=== PATIENT | female | born 1945 | race Caucasian/White ===

== ENCOUNTER 2019-03-20 12:04 | Outpatient (CLI) | payer MEDICARE, SELFPAY ==
--- NOTE | ~2019-03-20 | XR_ITS ---
EXAMINATION:XR cervical spine 4-5V DATE: 03/20/2019 12:34 INDICATION: Strain of the muscle, fascia, and tendon at the neck TECHNIQUE: AP, lateral, lateral swimmers and odontoid views of the cervical spine are provided. COMPARISON: 03/25/2008 FINDINGS: There are 2 mm of anterolisthesis of C5 on C6 3 mm of retrolisthesis C6 on C7. The odontoid is intact. No fracture is identified. There is mild loss of intervertebral disc space height at C6-7 . The vertebral body heights are normal. There is moderate facet and uncovertebral joint osteoarthrit is of the lower cervical spine. Prevertebral soft tissues are normal. A chronic heterotopic ossificat ion projects between the C5 and C6 spinous processes. Surgical clips are noted over the left upper ch est. IMPRESSION: 1. Mild to moderate cervical spondylosis without acute findings. Reviewed, dictated and finalized at location A. GROUT SEWER LINE REPAIRER
== END 2019-03-20 12:05 | disposition home or self-care (01) ==
LOC: ANHIMG 12:07
PROVIDERS: PCP Family Medicine; Visit Provider Family Medicine
DX: S16.1XXA Strain of muscle, fascia and tendon at neck level, initial encounter (principal); X58.XXXA Exposure to other specified factors, initial encounter; M47.892 Other spondylosis, cervical region
CPT/HCPCS: 72050

== ENCOUNTER → 2020-12-16 10:39 | Outpatient (CLI) | payer MEDICARE, SELFPAY ==
--- NOTE | ~2020-12-16 | XR_ITS ---
EXAMINATION: XR shoulder LT min 2V DATE: 12/16/2020 11:39 INDICATION: Pain in unspecified shoulder. TECHNIQUE: 4 views of left shoulder were obtained. COMPARISON: Left shoulder radiograph 07/18/2014 FINDINGS: Bone alignment is normal. No fracture. There is mild osteoarthritis of glenohumeral joint a nd acromioclavicular joint. Surgical clips overlie left chest. IMPRESSION: 1. Mild polyarticular osteoarthritis. Reviewed, dictated and finalized at location A. HICS PROGRAMMER
--- NOTE | ~2020-12-16 | XR_ITS ---
EXAMINATION: XR shoulder RT min 2V DATE: 12/16/2020 11:39 INDICATION: Pain in unspecified shoulder. TECHNIQUE: 4 views of right shoulder were obtained. COMPARISON: None. FINDINGS: Bone alignment is normal. No fracture. There is mild osteoarthritis of glenohumeral joint a nd acromioclavicular joint. IMPRESSION: 1. Mild polyarticular osteoarthritis. Reviewed, dictated and finalized at location A. AM TRIMMING MACHINE OPERATOR
== END ==
PROVIDERS: PCP Family Medicine; Visit Provider Family Medicine
DX: M19.011 Primary osteoarthritis, right shoulder (principal); M19.012 Primary osteoarthritis, left shoulder
CPT/HCPCS: 73030

== ENCOUNTER → 2021-12-30 11:33 | Outpatient (CLI) | payer MEDICARE, SELFPAY ==
--- NOTE | ~2021-12-30 | DEXA_ITS ---
Bone Density Report Name: JOSE BAÑUELOS Age: 76 Sex: Female Ethnicity: White Date of : 1945 Indication: osteopenia; prior fracture; hysterectomy;postmenopausal Referring Provider: JOCELYN CHUA Study: Bone densitometry was performed. Exam Date: December 30, 2021 Accession number: [id number] Bone Density: Region BMD T-score Z-score Classification AP Spine (L1-L4) 0.944 -0.9 1.4 Normal World Health Organization criteria for BMD impression classify patients as: Normal (T-score at or above -1.0), Osteopenia (T-score between -1.0 and -2.5), or Osteoporosis (T-score at or below -2.5). Previous Exams: Region Exam Age BMD T-score BMD Change BMD Change Date g/cm2 vs Baseline vs Previous AP Spine(L1-L4) 12/30/2021 76 0.944 -0.9 0.040* 0.040* 06/23/2015 70 0.903 -1.3 *Denotes significance at 95% confidence level, LSC for AP Spine = 0.022 g/cm2 Clinical Information Provided by Patient: Have had a previous hip or vertebral fracture Has had a low trauma fracture Has used the following medications: Vitamin D, Calcium, LEVOTHYROXINE Has the following medical conditions: Hysterectomy, HX OF LEFT BREAST CA LUMPECTOMY WITH RADIATION AND CHEMO IN 2005 WITH ARIMIDEX; HX OF TONGUE CA IN 2008 Patient maximum height was 64.0 Menopause Age: 53 Drinks caffeinated beverages Onset of menses at age 12 Number of children 4 Impression: The patient has normal bone mass. The patient has risk factors, including: previous fracture. No significant bone loss was observed. Discussion: INCREASED RISK OF FRACTURE DUE TO HISTORY OF FRACTURE. The patient's previous fracture puts the patient at high risk of a future fracture. In untreated patients, the risk of osteoporotic fracture increases approximately two-fold for each 1.0 SD decrease in T-score. Low bone density is not the only risk factor for fracture; also consider factors such as patient's age, frailty or poor health, risk of falling, risk of injury, previous osteoporotic fracture, family history of osteoporosis, cigarette smoking, low body weight, etc. Not everyone with a low trauma fracture has osteoporosis; osteomalacia and other metabolic bone disorders should also be considered. Patients who have osteoporosis should be evaluated for specific diseases and conditions (secondary causes) that may cause or contribute to bone loss and fracture risk. National Osteoporosis Foundation (NOF) recommends pharmacologic intervention for patients with a prior hip or vertebral fracture regardless of BMD T-score. The patient should follow a healthful lifestyle (good nutrition with adequate calcium and vitamin D, and appropriate weight-bearing exercise). Follow-Up: Consider a repeat BMD and Vertebral
== END ==
PROVIDERS: PCP Family Medicine; Visit Provider Obstetrics & Gynecology
DX: Z13.820 Encounter for screening for osteoporosis (principal); Z78.0 Asymptomatic menopausal state
CPT/HCPCS: 77080

== ENCOUNTER → 2022-01-21 10:04 | Outpatient (CLI) | payer MEDICARE, SELFPAY ==
--- NOTE | ~2022-01-21 | XR_ITS ---
EXAMINATION: XR chest 2V DATE: 01/21/2022 10:30 INDICATION: Cough and congestion TECHNIQUE: PA and lateral views of the chest are obtained. COMPARISON: 11/16/2012 FINDINGS: There are minimal airspace opacities of the left lung base. No pleural effusion or pneumoth orax. The cardiomediastinal silhouette is normal. There is mild thoracic spondylosis. Surgical clips project at the level of the left hilum. IMPRESSION: 1. Minimal left basilar airspace opacity, consistent with atelectasis versus pneumonia. Reviewed, dictated and finalized at location A. OR BUSINESS DEVELOPMENT ANALYST IMPRESSION: 1. Minimal left basilar airspace opacity, consistent with atelectasis versus pn eumonia.
== END ==
PROVIDERS: PCP Family Medicine; Visit Provider Family Medicine
DX: R05.9 Cough, unspecified (principal); R09.81 Nasal congestion; R53.83 Other fatigue; R91.8 Other nonspecific abnormal finding of lung field
CPT/HCPCS: 71046

== ENCOUNTER → 2022-02-25 10:51 | Outpatient (CLI) | payer MEDICARE, SELFPAY ==
--- NOTE | ~2022-02-25 | XR_ITS ---
XR chest 2V DATE: 02/25/2022 11:08 INDICATION: Pneumonia one month ago TECHNIQUE: 2 views COMPARISON: 01/21/2022 2 view chest FINDINGS: There is resolution of left lower lobe infiltrate or atelectasis since 01/21/2022. Lungs ap pear clear. No pleural effusion or pulmonary vascular congestion or pneumothorax. Normal heart size. Aortic unfolding. Surgical clips are noted overlying the anterior mid left chest. IMPRESSION: No active cardiopulmonary disease Reviewed, dictated and finalized at location L. L SPRAY OPERATOR
== END ==
PROVIDERS: PCP Family Medicine; Visit Provider Family Medicine
DX: J18.9 Pneumonia, unspecified organism (principal)
CPT/HCPCS: 71046

== ENCOUNTER 2022-04-30 12:17 | Emergency (ER) | payer MEDICARE, SELFPAY ==
--- NOTE | ~2022-04-30 | XR_ITS ---
Clinical Indication: Shortness of breath PA and lateral views of the chest: Comparison: 02/25/2022 Findings: The lungs are clear, without evidence of focal consolidation or pleural effusion. Cardiome diastinal silhouette is within normal limits. Bones and soft tissues are unremarkable. Impression: Normal chest. Reviewed, dictated and finalized at location . Impression: Normal chest.
[2022-04-30 12:26] VITALS: BP 115/60; PULSE 70; RESP 16; TEMP 36.5; O2SAT 99
--- NOTE | 2022-04-30 12:41 | ED.URI ---
HPI - URI/Sore Throat General Chief Complaint: Upper Respiratory Infection Stated Complaint: cough Time Seen by Provider: 04/30/22 12:42 Source: patient and RN notes reviewed Mode of arrival: ambulatory Limitations: no limitations History of Present Illness HPI Narrative: 76 y/o female presented for c/o cough and nasal congestion and drainage the past 3 days. Reports right lower rib pain with coughing. Denies lethargy, sob, wheezing, n/v/d/f/c. Not taking anything for symptoms. Denies sick contacts. PCP advised CXR and evaluation. MD elicited complaint: cough Related Data Home Medications Medication Instructions Recorded Confirmed cholecalciferol (vitamin D3) 25 25 mcg PO DAILY 10/01/20 04/30/22 mcg (1,000 unit) capsule mecobalamin (vitamin B12) 1,000 1,000 mcg PO DAILY 04/23/21 04/30/22 mcg chewable tablet (B12 Active) latanoprost 0.005 % eye drops 1 drp EACH EYE DAILY 02/25/22 04/30/22 mirabegron 25 mg tablet,extended 25 mg PO DAILY 02/25/22 04/30/22 release 24 hr (Myrbetriq) timolol maleate 0.5 % once daily 1 drp EACH EYE DAILY 02/25/22 04/30/22 eye drops Allergies Allergy/AdvReac Type Severity Reaction Status Date / Time codeine Allergy Unknown Unknown Verified 02/25/22 09:53 latex Allergy Unknown Unknown Verified 02/25/22 09:53 morphine Allergy Unknown NAUSEA Verified 02/25/22 09:53 Review of Systems Review of Systems: CONSTITUTIONAL: Denies malaise, chills, sweats, fever EYES: Denies visual changes, redness, or discharge ENT: Reports rhinorrhea, denies sinus pain, otalgia, sore throat CARDIOVASCULAR: Denies chest pain, palpitations, edema RESPIRATORY: Reports cough, post nasal drainage. Denies dyspnea GASTROINTESTINAL: Denies abdominal pain, nausea, vomiting, diarrhea SKIN: Denies rash or itching MUSCULOSKELETAL: Denies myalgia NEUROLOGIC: Denies headache [facility] Past Medical History Medical History (Updated 04/30/22 @ 13:26 by Ciarra Liz, PATIENT OBSERVATION ASSISTANT) Closed nondisplaced fracture of lateral malleolus of right fibula History of measles History of mumps HX: breast cancer Hypothyroid Malignant neoplasm of tongue, unspecified Neck strain Palmar fascial fibromatosis [dupuytren] Pneumonia Proctitis Sciatica Syncope and collapse Surgical History Surgical History History of hysterectomy History of open reduction and internal fixation (ORIF) procedure bilateral/ 2.15.22 Family History Family History Father Diabetes mellitus Family history of cardiovascular disease Mother Family history of cardiovascular disease Family history of malignant neoplasm of cervix Other Family history of arthritis Family history of heart disease in male family member before age 55 Family history of malignant neoplasm Family history of malignant neoplasm of breast Social History Social History Smoking status: Never smoker Alcohol intake: never Substance use type: does not use Lack of Transportation: No Lack of Food: Never True Current Housing: I Have Housing Concerned About Future Housing: No Difficulty Paying Gas/Electric Bills: No Difficulty Paying for Meds: No Currently Unemployed: No Education: Grade School Difficulty w/ Childcare or Family Care: No Exam Narrative: GENERAL: mildly Ill-appearing, nontoxic EYES: PERRLA, conjunctivae clear ENT: Mucous membranes moist. Nasal congestion. TM pearly mg with dull light reflex bilaterally; no tragal tenderness. Oropharynx normal without lesions or exudate NECK: Supple. No lymphadenopathy CHEST: Clear to auscultation, breath sounds equal. No wheezing, rhonchi, rales, or stridor. No respiratory distress, speaks in full sentences. HEART: Regular rate and rhythm. No murmur heard. SKIN: Warm, dry, no rash. NEURO: Alert and oriented x3. PSYCH: Normal mood
== END 2022-04-30 13:30 | disposition home or self-care (01) ==
PROVIDERS: Emergency Provider Nurse Practitioner Family; PCP Family Medicine
DX: J06.9 Acute upper respiratory infection, unspecified (principal); E03.9 Hypothyroidism, unspecified; Z85.3 Personal history of malignant neoplasm of breast; Z20.822 Contact with and (suspected) exposure to COVID-19
CPT/HCPCS: 71046; 87426; 99213; C9803; G0463

== ENCOUNTER 2024-03-01 09:47 | Outpatient (CLI) | payer MEDICARE, SELFPAY ==
[2024-03-02 10:15] LABS: Kit Draw Collected
== END 2024-03-01 09:48 | disposition home or self-care (01) ==
LOC: ANHGOSHLAB 09:48
PROVIDERS: PCP Family Medicine; Visit Provider Family Medicine
DX: E03.9 Hypothyroidism, unspecified (principal); M85.80 Other specified disorders of bone density and structure, unspecified site; R06.02 Shortness of breath
CPT/HCPCS: 36415

== ENCOUNTER 2024-03-01 10:02 | Outpatient (CLI) | payer MEDICARE, SELFPAY ==
--- NOTE | ~2024-03-01 | XR_ITS ---
Clinical Indication: Shortness of breath PA and lateral views of the chest: Comparison: 04/30/2022 Findings: The lungs are clear, without evidence of focal consolidation or pleural effusion. Cardiome diastinal silhouette is within normal limits. Bones and soft tissues are unremarkable. Impression: Normal chest. Reviewed, dictated and finalized at [facility]. ATIONS STAFF SPECIALIST SECURITY Impression: Normal chest.
== END 2024-03-01 10:03 | disposition home or self-care (01) ==
LOC: GOSHIMG 10:03
PROVIDERS: PCP Family Medicine; Visit Provider Family Medicine
DX: R06.02 Shortness of breath (principal); G62.0 Drug-induced polyneuropathy; T45.1X5A Adverse effect of antineoplastic and immunosuppressive drugs, initial encounter; Z85.3 Personal history of malignant neoplasm of breast
CPT/HCPCS: 71046

== ENCOUNTER 2024-03-06 14:41 | Outpatient (CLI) | payer MEDICARE, SELFPAY ==
--- NOTE | ~2024-03-06 | US_ITS ---
EXAMINATION: US venous doppler [facility] DATE: 03/06/2024 15:10 INDICATION: Left lower limb pain TECHNIQUE: Grayscale ultrasound images without and with compression and Doppler ultrasound images of the left lower extremity veins were obtained. COMPARISON: None. FINDINGS: There is noncompressible deep venous anastomosis profunda femoral, superficial femoral, popliteal and gastrocnemius veins. The visualized portions of left common femoral vein, peroneal veins, posterior tibial veins, gastrocnemius vein and greater saphenous vein outflow are patent. IMPRESSION: 1. Venous thrombosis in the left superficial femoral, profunda femoral, popliteal and gastrocnemius veins. Reviewed, dictated and finalized at location A. RAL OFFICE DISPATCHER IMPRESSION: 1. Venous thrombosis in the left superficial femoral, profunda femoral, poplit eal and gastrocnemius veins.
--- OUTSIDE RECORDS SUMMARY | 2024-03-06 15:17 | XMS_ITS ---
Author Organization [facility] Address [address] [place] [address] Care Team Providers Care Control Clerk Head Name Role Phone Darleen Alan MD Primary Care Provider + Aft, Marion Swift MD PhD Unavailable [phone] Bisi Lopez CLERK SECRETARY Unavailable [phone] Active Problems Problem Noted Date Diagnosed Date Breast cancer, female 09/10/2021 Acute blood loss anemia 03/24/2021 Closed displaced transverse fracture of shaft of left femur 03/21/2021 Overview (03/21/2021): Added automatically from request for surgery [id number] Closed displaced transverse fracture of shaft of left femur, initial encounter 03/21/2021 Incomplete atypical fracture of right femur 03/10 Overview (03/23/2021): Added automatically from request for surgery [id number] Malignant neoplasm of overla pping 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, estrogen receptor positive 10/05/2017 History of malignant neoplasm of breast 11/09/19 15 Malignant neoplasm of tongue 06/20/2009 Current Oncology Plans No current plan information found. Past Plans No past plan information found. Radiation Treatments * No radiation treatments are documented for this patient in [facility]. Treatments may have been administered in another system. Lifetime Dose Tracking * Chemical Lifetime Dose Automatic Entry Manual Entr y Fluoro Time 8.827 minutes 8.827 minutes 0 minutes Air kerma at the reference point (Ka,r) 121.37 mGy 1 21.37 mGy 0 mGy
--- OUTSIDE RECORDS SUMMARY | 2024-03-06 15:17 | XMS_ITS | Continuity of Care Document ---
Author Organization [facility] Address [address] [place] [address] Phone Care Team Providers Care Launderette Attendant Name Role Phone Fermín RAMIREZ MD, Gilberto Unavailable Unavailable Procedures Procedure Date OFFICE/OUTPATIENT VISIT, [facility] OPHTHALMIC BIOMETRY SPECIAL EYE EXAM, INITIAL SPECIAL EYE EXAM, INITIAL Advance Directives Directive Yes / No Effective Date File Name No Information Encounters Encounter Description Practice Location Reason(s) For Visit Diagnoses Date Provider Providers Copied on Encounter OFFICE/OUTPA TIENT VISIT, [facility], [address] [address], [place], [place], [id number], [place] tel:[phone] [facility] No Information 4 Fermín Macias. [address], [address], [place], [place], [id number] , [place]. tel:[phone] Referring Provider: Gilberto Kovacs MD P, [address], [place], [place], [id number]. tel:[phone] Family History Family Member Type Diagnosis Age At Onset No Information Payers Payer name Insurance type Covered democrat ID Authoriza tion(s) No Information Social History Type Description Quantity Date Captured Comments Sex Female Smoking Status No Information Chief Complaint And Reason For Visit No Information Plan Of Treatment Date Type Action Status No Information History Of Present Illness Encounter Date Complaint History Of Prese nt Illness No Information Instructions Date Instruction Additional Infor mation No Information Assessments Type Assessment Date No Information
--- OUTSIDE RECORDS SUMMARY | 2024-03-06 15:17 | XMS_ITS | Referral Summary ---
Author Organization [facility] Address [address] [place] [address] Care Team Providers Care Sharepoint Application Developer Name Role Phone Darleen Alan MD Primary Care Provider + Aft, Marion Swift MD PhD Unavailable [phone] JessicaBisi SALVAGE WORKER Unavailable [phone] Allergies Active Allergy Reactions Criticality Noted Date Comments Adhesive Rash Medium Codeine Unknown,Other (See comments) Low 05/22/2010 Reaction: Codeine Phosphate Unknown 09/01/2012 Propoxyphene N-Acetaminophen Other (See comments) Low Reaction: Opioids - Morphine Analogues Unknown 09/01/2012 Medications ENABLEX 15 mg 24 hr tablet 8 Active famotidine (PEPCID) 40 mg tablet 8 Active efinaconazole 10 % solution with applicator Active multivitamin tabletIndication s:Vitamin Deficiency Prevention Active vitamins A,C,N-waip-jnsjo r (OCUVITE) 7,160 unit- 113 mg-100 unit tablet Active cholecalciferol (VITAMIN D-3) 2,000 unit tablet Active hydrocortisone (ANUSOL-HC) 25 mg suppository 8 Active latanoprost (XALATAN) 0.005 % ophthalmic solution 9 Active oxybutynin XL (DITROPAN-XL) 10 mg 24 hr tablet Take 1 tablet (10 mg total) by mouth daily 0 Active levothyroxine (SYNTHROID) 88 mcg tablet Take 100 mcg by mouth every morning 0 Active cyanocobalamin, vitamin B-12, (VITAMIN B-12 ORAL) Take by mouth Active acetaminophen 500 mg capsuleIndicatio ns:Pain Take 2 capsules (1,000 mg total) by mouth every 6 (six) hours 30 tablet 2 Active aspirin 81 mg enteric coated tabletIndication s:prevention of thrombosis Take 1 tablet (81 mg total) by mouth 2 (two) times a day for 14 days 28 tablet 2 Active oxyCODONE (ROXICODONE) 5 mg immediate release tabletIndication s:Pain Take 1 tablet (5 mg total) by mouth every 4 (four) hours as needed for pain 20 tablet 2 Active polyethylene glycol (MIRALAX) 17 gram packetIndication s:constipation Take 1 packet (17 g total) by mouth 2 (two) times a day 30 packet 2 Active Additional Information Patient not taking.Reported on 01/13/2023 senna-docusate (PERICOLACE) 8.6-50 mg Take 2 tablets by mouth 2 (two) times a day 30 tablet 2 Active Additional Information Patient not taking.Reported on 01/13/2023 gabapentin (NEURONTIN) 300 mg capsule TAKE 2 CAPSULE BY MOUTH EVERY DAY AT BEDTIME 3 Active timoloL (ISTALOL) 0.5 % drops, once daily ophthalmic solution 3 Active prednisoLONE acetate (PRED FORTE) 1 % ophthalmic suspension INSTILL 1 DROP INTO LEFT EYE THREE TIMES DAILY UNTIL NEXT FOLLOW UP 3 Active Myrbetriq 50 mg tablet extended release 24 hr Take 1 tablet (50 mg total) by mouth daily 3 Active Active Problems Problem Noted Date Diagnosed Date Breast cancer, female 09/10/2021 Acute blood loss anemia 03/24/2021 Closed displaced transverse fracture of shaft of left femur 03/21/2021 Overview (03/21/2021): Added automatically from request for surgery [id number] Closed displaced transverse fracture of shaft of left femur, initial encounter 03/21/2021 Incomplete atypical fracture of right femur 03/10 Overview (03/23/2021): Added automatically from request for surgery [id number] Malignant neoplasm of overla pping 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, estrogen receptor positive 10/05/2017 History of malignant neoplasm of breast 11/09/19 15 Malignant neoplasm of tongue 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 Monthly or less 03/22/2021 Q2: How many drinks containi ng alcohol do you have on a typical day when you are drinking? 1 or 2 03/22/2021 Q3: How often do you have si x or more drinks on one occasion? Never 03/22/2021 Comments No Sex and Gender Information Value Date Recorded Sex Assigned at Not on file Legal Sex Female 3:26 AM STAND GRINDER Gender Identity Female 04/18/2021 6:39 PM STAND GRINDER Sexual Orientation Straight 04/18/2021 6: 39 PM STAND GRINDER Last Filed Vital Signs Vital Sign Reading Time Taken Comments Blood Pressure 121/67 01/13/2023 3:47 PM STAND GRINDER Pulse 78 01/13/2023 3:47 PM STAND GRINDER Temperature 36.3 ??C (97.4 ??F) 01/13/2023 3:47 PM CS T Respiratory Rate 18 01/13/2023 3:47 PM STAND GRINDER Oxygen Saturation 97% 01/13/2023 3:47 PM STAND GRINDER Inhaled Oxygen Concentration - - Weight 82.4 kg (181 lb 9.6 oz) 01/13/2023 3:47 P M STAND GRINDER Height 162.6 cm (5' 4 ) 01/13/2023 3:47 PM STAND GRINDER Body Mass Index 31.17 01/13/2023 3:47 PM STAND GRINDER Plan of Treatment Not on file Medical Devices Implanted Type Area Invasive Cardiologist Device Identifier Shelf Expiration Date Model / Serial / Lot [employer] 2333-1038s Nail 10mm 380mm Fem Greater Trochanter Right T2 Alpha Im - [id number] Implanted:Qty: 1 on 03/24/2021 by Franny Cardozo MD at [facility] Nail Right: Femur [employer] [id number] 10/07/2022 5278-9134 S / / [id number] Synthes 04.003.028 6.5mm 90mm Self Tap Blunt Tip Stardrive Femoral Lateral T25 Screw - S0 - [id number] Implanted:Qty: 1 on 03/22/2021 by Rusty Larios MD at [facility] Screw Left: Femur Synthes I 04.003.02 8 / 0 / 0 Synthes 04.005.528 5mm 4.3mm 38mm Lock Self Tap Blunt Tip 2 Lead Tibial T25 Full - S0 - [id number] Implanted:Qty: 1 on 03/22/2021 by Rusty Larios MD at [facility] Screw Left: Femur Synthes I 04.005.52 8 / 0 / 0 Synthes 04.005.534 5mm 4.3mm 44mm Lock Self Tap Blunt Tip 2 Lead Tibial T25 Full - S0 - [id number] Implanted:Qty: 1 on 03/22/2021 by Rusty Larios MD at [facility] Screw Left: Femur Synthes I 04.005.53 4 / 0 / 0 Synthes 04.005.532 5mm 4.3mm 42mm Lock Self Tap Blunt Tip 2 Lead Tibial T25 Full - S0 - [id number] Implanted:Qty: 1 on 03/22/2021 by Rusty Larios MD at [facility] Screw Left: Femur Synthes I 04.005.53 2 / 0 / 0 Synthes 04.005.536 5mm 4.3mm 46mm Lock Self Tap Blunt Tip 2 Lead Tibial T25 Full - S0 - [id number] Implanted:Qty: 1 on 03/22/2021 by Rusty Larios MD at [facility] Screw Left: Femur Synthes I 04.005.53 6 / 0 / 0 [employer] 1897-6080s 6.5mm 80mm Lag Cannulated Femur Screw Bone Titanium Sterile - [id number] Implanted:Qty: 1 on 03/24/2021 by Franny Cardozo MD at [facility] Screw Right: Femur [employer] [id number] 10/07/2025 5991-0249 S / / [id number] [employer] 1897-6080s 6.5mm 80mm Lag Cannulated Femur Screw Bone Titanium Sterile - [id number] Implanted:Qty: 1 on 03/24/2021 by Franny Cardozo MD at [facility] Screw Right: Femur [employer] [id number] 08/06/2022 2063-1624 S / / [id number] [employer] 2360-5055s Screw Bone 5mm 55mm T2 Alpha Lock Strl - [id number] Implanted:Qty: 1 on 03/24/2021 by Luis Medina MD at [facility] Screw Right: Femur [employer] [id number] 03/09/2030 1681-5282 S / / [id number] [employer] 2360-5045s Screw Bone 5mm 45mm T2 Alpha Lock Strl - [id number] Implanted:Qty: 1 on 03/24/2021 by Luis Medina MD at [facility] Screw Right: Femur [employer] [id number] 04/06/2030 1700-7811 S / / [id number] Synthes 04.033.067s Nail 10mm 360mm Fem Greater Trochanter Left Im 140d 8 Hole - [id number] Implanted:Qty: 1 on 03/22/2021 by Mauro Barraza MD at [facility] Left: Femur [employer]ynthe[employer] I 08/07/2027 04.033.06 7S / / [id number] Explanted Type Area Invasive Cardiologist Device Identifier Shelf Expiration Date Model / Serial / Lot [employer] 1806-0050s Dom T2 3mm 285mm Retrograde Supracondylar Wire Fixation - [id number] Explanted:Qty: 1 on 03/24/2021 by Franny Cardozo MD at [facility] Wire Right: Femur [employer] [id number] 12/07/2025 2653-2955 S / / [id number] [employer] 2351-3240s K-Wire Drill-Tip Recon - [id number] Explanted:Qty: 1 on 03/24/2021 by Franny Cardozo MD at [facility] Wire Right: Femur [employer] [id number] 01/06/2031 8705-1757 S / / [id number] Procedures Procedure Name Priority Date/Time Associated Diagnosis Comments SCREENING MAMMOGRAM BILATERAL W BLANCA Schedule Routine, Read Routine (OP Routine) 11/21/2023 1:59 PM CDT Encounter for screening mammogram for breast cancer from Last 3 Months or Most Recently Relevant to Health Maintenance Results * Screening Mammogram Bilateral W Blanca (11/21/2023 1:59 PM CDT) Anatomical Region Laterality Modality Breast Bilateral Mammography Impressions 11/21/2023 2:26 PM CDT BI-RADS?? ATLAS category (overall): 2 - Benign There is no mammographic evidence of malignancy. A 1 year screening mammogram is recommended. The patient has been or will be contacted. We recommend annual screening mammography for women at average risk of breast cancer beginning at age 40, based on guidelines of the [employer] (ACR Practice Parameter for the Performance of Screening and Diagnostic Mammography) and [employer]. For women with and elevated risk of breast cancer, please refer to the ACR Practice Parameter for specific screening recommendations. The patient will be entered into a reminder system with a target due date of 1 year for her next screening exam. Narrative 11/21/2023 2:26 PM CDT Screening Mammogram Bilateral W Blanca: 11/21/23 The study was acquired using full field digital technology and interpreted from soft copy. 2D digital mammographic views, as well as 3D digital tomosynthesis were performed in the CC and MLO projections. CLINICAL: ??Encounter for screening mammogram for breast cancer. ??Medical history includes breast cancer. ??History of breast cancer in Father's Sister. COMPARISONS: 10/04/2022 Screening Mammogram Bilateral W Blanca 07/13/2021 Screening Mammogram Bilateral W Blanca 01/23/2020 Screening Mammogram Bilateral W Blanca 12/20/2018 Screening Mammogram Bilateral W Blanca 12/14/2017 Screening Mammogram 2D Bilateral 11/29/2016 MAMMOGRAPHY, TOMOGRAPHY, BILATERAL 11/24/2015 Diagnostic Mammogram Right W Blanca 11/24/2015 DIGITAL MAMMOGRAPHY, UNILATERAL BREAST TISSUE: There are scattered areas of fibroglandular density. FINDINGS: There are stable postlumpectomy changes in the left breast. ?? There are vascular calcifications bilaterally. No suspicious masses, suspicious calcifications, or other suspicious findings are seen within either breast. There has been no suspicious change. Amparo Villanueva NP IMG MAMMO PROCEDURES Final Result from Last 3 Months or Most Recently Relevant to Health Maintenance Insurance AETNA MEDICARE MEDICARE SOLUTIONS [facility] Address: [facility] [address] [place] [address] T MEDICARE AET MEDICARE Advance Directives For more information, please contact: [phone] * Full Code (Latest Code Status on File) Date Activated Date Inactivated Comments 03/22/2021 1:16 AM 03/31/2021 5:08 PM Care Teams Sharepoint Application Developer Relationship Specialty Start Date End Date Darleen Alan MD PCP - General 11/29/16 Aft, Marion Swift MD PhD [address] [place] [address] Surgeon Surgical Oncology 03/31/21 Bisi Lopez NP [address] [place] [id number] Nurse Practitioner Medical Oncology 11/19/22
--- OUTSIDE RECORDS SUMMARY | 2024-03-06 15:17 | XMS_ITS | Clinical Summary ---
Author Organization [facility] Address [address] [place] [address] Care Team Providers Care Screening Technician Name Role Phone Darleen Alan MD Primary Care Provider + Aft, Marion Swift MD PhD Unavailable [phone] JessicaBisi GUEST EXPERIENCE CAPTAIN Unavailable [phone] Allergies Active Allergy Reactions Criticality Noted Date [...] multivitamin tabletIndication s:Vitamin Deficiency Prevention Active vitamins A,C,C-tavm-mqwof r (OCUVITE) 7,160 unit- 113 mg-100 unit [...] (03/21/2021): Added automatically from request for surgery [id number] Closed displaced transverse fracture of shaft of left femur, initial encounter 03/21/2021 Incomplete atypical fracture of right femur 03/10 Overview (03/23/2021): Added automatically from request for surgery [id number] Malignant neoplasm of overla pping 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, estrogen receptor positive 10/05/2017 History of malignant neoplasm of breast 11/09/19 15 Malignant neoplasm of tongue 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 Immunizations Name Administration Dates Next Due Influenza, Quadrivalent, Hig h Dose, Preservative Free, Intrr 11/09/2019 Influenza, Unspecified 12/08/2020,2017,11/22/2016,2015,09/26/2012 ZOSTER LIVE 11/22/2016 Surgical History Surgery Date Site/Laterality Comments COLONOSCOPY BREAST BIOPSY BREAST LUMPECTOMY Medical History Medical History Date Comments Breast cancer (HCC) Family History Medical History Relation Name Comments Breast cancer Father's Sister No Known Problems Mother Relation Name Status Comments Father's Sister Mother Social History Tobacco Use Types Packs/Day Years [...] on file Legal Sex Female 3:26 AM ADVENTURE EDUCATION TEACHER Gender Identity Female 04/18/2021 6:39 PM ADVENTURE EDUCATION TEACHER Sexual Orientation Straight 04/18/2021 6: 39 PM ADVENTURE EDUCATION TEACHER Obstetrics History Last Filed Vital Signs Vital Sign Reading Time Taken Comments Blood Pressure 121/67 01/13/2023 3:47 PM ADVENTURE EDUCATION TEACHER Pulse 78 01/13/2023 3:47 PM ADVENTURE EDUCATION TEACHER Temperature 36.3 ??C (97.4 ??F) 01/13/2023 3:47 PM CS T Respiratory Rate 18 01/13/2023 3:47 PM ADVENTURE EDUCATION TEACHER Oxygen Saturation 97% 01/13/2023 3:47 PM ADVENTURE EDUCATION TEACHER Inhaled Oxygen Concentration - - Weight 82.4 kg (181 lb 9.6 oz) 01/13/2023 3:47 P M ADVENTURE EDUCATION TEACHER Height 162.6 cm (5' 4 ) 01/13/2023 3:47 PM ADVENTURE EDUCATION TEACHER Body Mass Index 31.17 01/13/2023 3:47 PM ADVENTURE EDUCATION TEACHER Plan of Treatment Health Maintenance Due Date Last Done Comments Depression Screening 1945 Hepatitis C Screening 1945 Osteoporosis Screening-Bone Density Scan 1945 DTaP/Tdap/Td Vaccine (1 - Tdap) 05/26/1958 Hepatitis B Screening 05/26/1965 Pneumococcal vaccine 65+ (1 of 1 - PCV) 05/26/2012 Well Visit 65+ 05/26/2012 Zoster Vaccine (2 of 3) 01/17/2017 11/22/2016 Fall Risk Assessment 03/30/2022 03/30/2021 Influenza Vaccine (#1) 2023 , 11/09/2019, 11/07/2017, Additional history exists Breast Cancer Screening-Mammogram Discontinued 11/21/2023, 10/04/2022, 07/13/2021, Additional history exists Medical Devices Implanted Type Area Wedding Coordinator Device Identifier Shelf Expiration Date Model / Serial / Lot [employer] 2333-1038s Nail 10mm 380mm Fem Greater Trochanter Right T2 Alpha Im - [id number] Implanted:Qty: 1 on 03/24/2021 by Franny Cardozo MD at [facility] Nail Right: Femur [employer] [id number] 10/07/2022 3155-3869 S / / [id number] Synthes 04.003.028 6.5mm 90mm Self Tap Blunt Tip Stardrive Femoral Lateral T25 Screw - S0 - [id number] Implanted:Qty: 1 on 03/22/2021 by Rusty Larios MD at [facility] Screw Left: Femur Synthes I 04.003.02 8 / 0 / 0 Synthes 04.005.528 5mm 4.3mm 38mm Lock Self Tap Blunt Tip 2 Lead Tibial T25 Full - S0 - [id number] Implanted:Qty: 1 on 03/22/2021 by Rusty Larios MD at [facility] Screw Left: Femur Synthes I 04.005.52 8 / 0 / 0 Synthes 04.005.534 5mm 4.3mm 44mm Lock Self Tap Blunt Tip 2 Lead Tibial T25 Full - S0 - [id number] Implanted:Qty: 1 on 03/22/2021 by Rusty Larios MD at [facility] Screw Left: Femur Synthes I 04.005.53 4 / 0 / 0 Synthes 04.005.532 5mm 4.3mm 42mm Lock Self Tap Blunt Tip 2 Lead Tibial T25 Full - S0 - [id number] Implanted:Qty: 1 on 03/22/2021 by Rusty Larios MD at [facility] Screw Left: Femur Synthes I 04.005.53 2 / 0 / 0 Synthes 04.005.536 5mm 4.3mm 46mm Lock Self Tap Blunt Tip 2 Lead Tibial T25 Full - S0 - [id number] Implanted:Qty: 1 on 03/22/2021 by Rusty Larios MD at [facility] Screw Left: Femur Synthes I 04.005.53 6 / 0 / 0 [employer] 1897-6080s 6.5mm 80mm Lag Cannulated Femur Screw Bone Titanium Sterile - [id number] Implanted:Qty: 1 on 03/24/2021 by Franny Cardozo MD at [facility] Screw Right: Femur [employer] [id number] 10/07/2025 7640-0242 S / / [id number] [employer] 1897-6080s 6.5mm 80mm Lag Cannulated Femur Screw Bone Titanium Sterile - [id number] Implanted:Qty: 1 on 03/24/2021 by Franny Cardozo MD at [facility] Screw Right: Femur [employer] [id number] 08/06/2022 6712-7458 S / / [id number] [employer] 2360-5125s Screw Bone 5mm 55mm T2 Alpha Lock Strl - [id number] Implanted:Qty: 1 on 03/24/2021 by Luis Medina MD at [facility] Screw Right: Femur [employer] [id number] 03/09/2030 1412-7623 S / / [id number] [employer] 2360-5045s Screw Bone 5mm 45mm T2 Alpha Lock Strl - [id number] Implanted:Qty: 1 on 03/24/2021 by Luis Medina MD at [facility] Screw Right: Femur [employer] [id number] 04/06/2030 3048-2297 S / / [id number] Synthes 04.033.067s Nail 10mm 360mm Fem Greater Trochanter Left Im 140d 8 Hole - [id number] Implanted:Qty: 1 on 03/22/2021 by Mauro Barraza MD at [facility] Left: Femur Synthes I 08/07/2027 04.033.06 7S / / [id number] Explanted Type Area Wedding Coordinator Device Identifier Shelf Expiration Date Model / Serial / Lot [employer] 1806-0050s Dom T2 3mm 285mm Retrograde Supracondylar Wire Fixation - [id number] Explanted:Qty: 1 on 03/24/2021 by Franny Cardozo MD at [facility] Wire Right: Femur [employer] [id number] 12/07/2025 7240-5964 S / / [id number] [employer] 2351-3240s K-Wire Drill-Tip Recon - [id number] Explanted:Qty: 1 on 03/24/2021 by Franny Cardozo MD at [facility] Wire Right: Femur [employer] [id number] 01/06/2031 5048-4183 S / / [id number] Procedures Procedure Name Priority Date/Time Associated Diagnosis [...] age 40, based on guidelines of the [place] [employer] (ACR Practice Parameter for the Performance of Screening and Diagnostic Mammography) and [place] [employer]. For women [...] Health Maintenance Insurance AETNA MEDICARE MEDICARE [facility] Address: [address] [address] [place] [address] AET MEDICARE AETNA MEDICARE Advance Directives For more information, please contact: [phone] * Full Code (Latest Code Status on File) Date Activated Date Inactivated Comments 03/22/2021 1:16 AM 03/31/2021 5:08 PM Care Teams Screening Technician Relationship Specialty Start Date End Date Darleen Alan MD PCP - General 11/29/16 AftMarion MD PhD [address] [place] [address] Surgeon Surgical Oncology 03/31/21 Bisi Lopez, NATASHA [address] [address] Nurse Practitioner Medical Oncology 11/19/22
== END 2024-03-06 14:42 | disposition home or self-care (01) ==
LOC: ANHIMG 14:43
PROVIDERS: PCP Family Medicine; Visit Provider Student in an Organized Health Care Education/Training Program
DX: I82.412 Acute embolism and thrombosis of left femoral vein (principal); I82.432 Acute embolism and thrombosis of left popliteal vein; I82.462 Acute embolism and thrombosis of left calf muscular vein
CPT/HCPCS: 93971

== ENCOUNTER 2024-03-23 11:12 | Outpatient (CLI) | payer MEDICARE, SELFPAY ==
--- NOTE | ~2024-03-23 | CT_ITS ---
EXAMINATION: CTA chest PE protocol DATE: 03/23/2024 11:43 INDICATION: Shortness of breath TECHNIQUE: Computed tomography (CT) pulmonary angiogram of the chest was performed with 100 mL Omnipa que-350 intravenous contrast. Additional 3D reconstructions utilizing coronal maximum intensity proje ction (MIP) were performed. Automated exposure control and iterative reconstruction technique were em ployed. The dose-length product was 364.73 mGy-cm. COMPARISON: None FINDINGS: Nonocclusive filling defect consistent with pulmonary embolism in the right lower lobar pulmonary art mariama distal to the take off of the superior segmental pulmonary arteries and extending into the latera l basilar pulmonary artery of the right lower lobe. No other pulmonary emboli. Mild dependent atelect asis in the bilateral lower lobes. There is a 1.9 x 0.9 cm centrally opacity opacity at the right pos terior sulcus most likely atelectasis surrounding normal aerated lung however could not absolutely ex clude a cavitary nodule. No pulmonary edema, pleural effusion or pneumothorax. There are few scattere d tiny calcified pulmonary nodules consistent with old granulomatous disease. Heart size is normal wi th no evidence of right heart strain. No pericardial effusion. Thoracic aorta is normal in caliber wi th no dissection. No pathologically enlarged thoracic lymphadenopathy. Left breast prosthesis. 1.7 cm cyst at the dome of the liver. Small sliding-type hiatal hernia. Visualized upper abdomen is otherwi se unremarkable. Mild thoracic spondylosis. IMPRESSION: 1. Pulmonary embolism with no clot burden in the right lower lobar pulmonary artery. 2. 1.9 x 0.9 cm centrally lucent lesion at the posterior sulcus of the right lower lobe most likely r esulting from atelectasis although a centrally cavitary infectious, inflammatory or malignant nodule cannot be excluded. Consider 3 month follow-up low-dose noncontrast chest CT at full inspiration. Thi s and the pulmonary embolism were discussed with the proximal ischemia at 12:05 PM. Reviewed, dictated and finalized at location A. ST SPLITTER IMPRESSION: 1. Pulmonary embolism with no clot burden in the right lower lobar pulmonary ar basilio. 2. 1.9 x 0.9 cm centrally lucent lesion at the posterior sulcus of the right lo wer lobe most likely resulting from atelectasis although a centrally cavitary i nfectious, inflammatory or malignant nodule cannot be excluded. Consider 3 nata h follow-up low-dose noncontrast chest CT at full inspiration. This and the pul monary embolism were discussed with the proximal ischemia at 12:05 PM.
[2024-03-23 11:31] LABS: Estimated Glomerular Filt Rate 44
== END 2024-03-23 11:13 | disposition home or self-care (01) ==
LOC: MICIMG 11:13
PROVIDERS: PCP Family Medicine; Visit Provider Student in an Organized Health Care Education/Training Program
DX: R06.02 Shortness of breath (principal); I82.409 Acute embolism and thrombosis of unspecified deep veins of unspecified lower extremity; I26.99 Other pulmonary embolism without acute cor pulmonale
CPT/HCPCS: 71275; Q9967

== ENCOUNTER 2024-06-21 10:29 | Outpatient (CLI) | payer MEDICARE, SELFPAY ==
--- NOTE | ~2024-06-21 | CT_ITS ---
CT Scan of the Chest without Contrast: Clinical Indication: Pulmonary nodule Technique: Contiguous sections were acquired throughout the chest without intravenous contrast. Dose reduction technique was used on this scan by utilizing automated exposure control and iterative recon struction technique. The dose-length product (DLP) was 74.40 mGy-cm. COMPARISON: 03/23/2024 Findings: There is no evidence of any significant mediastinal, hilar or axillary lymphadenopathy. The mediastin al soft tissues appear normal. There is no evidence of pleural or pericardial effusion. Right basilar nodular opacity is decreased in size, now measuring 7 mm, with resolution of the cavita ry portion. Images through the upper abdomen reveal no abnormalities. Impression: Decreased, more confluent right basilar pulmonary nodule now measuring 7 mm. Reviewed, dictated and finalized at location . Impression: Decreased, more confluent right basilar pulmonary nodule now measuring 7 mm.
--- OUTSIDE RECORDS SUMMARY | 2024-06-21 10:41 | XMS_ITS | Clinical Summary ---
Author Organization [facility] Address [address] [place] [address] Care Team Providers Care Firer Locomotive Name Role Phone Darleen Alan MD Primary Care Provider + Aft, Marion Swift MD PhD Unavailable [phone] JessicaBisi BI REPORT DEVELOPER Unavailable [phone] Allergies Active Allergy Reactions Criticality Noted Date [...] multivitamin tabletIndication s:Vitamin Deficiency Prevention Active vitamins A,C,A-wxdv-zvriz r (OCUVITE) 7,160 unit- 113 mg-100 unit [...] (03/21/2021): Added automatically from request for surgery [id number] Closed displaced transverse fracture of shaft of left femur, initial encounter 03/21/2021 Incomplete atypical fracture of right femur 03/10 Overview (03/23/2021): Added automatically from request for surgery [id number] Malignant neoplasm of overla pping 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, estrogen receptor positive 10/05/2017 History of malignant neoplasm of breast 11/09/19 15 Malignant neoplasm of tongue 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 Immunizations Immunization Administration Dates Next Due Influenza, Quadrivalent, Hig [...] on file Legal Sex Female 3:26 AM BIOINFORMATICS ASSISTANT Gender Identity Female 04/18/2021 6:39 PM BIOINFORMATICS ASSISTANT Sexual Orientation Straight 04/18/2021 6: 39 PM BIOINFORMATICS ASSISTANT Obstetrics History Last Filed Vital Signs Vital Sign Reading Time Taken Comments Blood Pressure 121/67 01/13/2023 3:47 PM BIOINFORMATICS ASSISTANT Pulse 78 01/13/2023 3:47 PM BIOINFORMATICS ASSISTANT Temperature 36.3 C (97.4 F) 01/13/2023 3:47 PM BIOINFORMATICS ASSISTANT Respiratory Rate 18 01/13/2023 3:47 PM BIOINFORMATICS ASSISTANT Oxygen Saturation 97% 01/13/2023 3:47 PM BIOINFORMATICS ASSISTANT Inhaled Oxygen Concentration - - Weight 82.4 kg (181 lb 9.6 oz) 01/13/2023 3:47 P M BIOINFORMATICS ASSISTANT Height 162.6 cm (5' 4 ) 01/13/2023 3:47 PM BIOINFORMATICS ASSISTANT Body Mass Index 31.17 01/13/2023 3:47 PM BIOINFORMATICS ASSISTANT Plan of Treatment Health Maintenance Due Date Last Done Comments Depression Screening 1945 Hepatitis C Screening 1945 Osteoporosis Screening-Bone Density Scan 1945 DTaP/Tdap/Td Vaccine (1 - Tdap) 05/26/1958 Hepatitis B Screening 05/26/1965 Pneumococcal vaccine 65+ (1 of 1 - PCV) 05/26/1997 Well Visit 65+ 05/26/2012 Zoster Vaccine (2 of 3) 01/17/2017 11/22/2016 Fall Risk Assessment 03/30/2022 03/30/2021 Influenza Vaccine (Season Ended) 2024 12/08/2020, 11/09/2019, 11/07/2017, Additional history exists Breast Cancer Screening-Mammogram Discontinued 11/21/2023, 10/04/2022, 07/13/2021, Additional history exists Medical Devices Implanted Type Area Therapy Manager Device Identifier Shelf Expiration Date Model / Serial / Lot [employer] 2333-1038s Nail 10mm 380mm Fem Greater Trochanter Right T2 Alpha Im - [id number] Implanted:Qty: 1 on 03/24/2021 by Franny Cardozo MD at [facility] Nail Right: Femur [employer] [id number] 10/07/2022 9616-0123 S / / [id number] Synthes 04.003.028 6.5mm 90mm Self Tap Blunt Tip Stardrive Femoral Lateral T25 Screw - S0 - [id number] Implanted:Qty: 1 on 03/22/2021 by Rusty Larios MD at [facility] Screw Left: Femur Synthes I 04.003.02 8 / 0 / 0 Synthes 04.005.528 5mm 4.3mm 38mm Lock Self Tap Blunt Tip 2 Lead Tibial T25 Full - S0 - [id number] Implanted:Qty: 1 on 03/22/2021 by Rusty Larios MD at [facility] Screw Left: Femur Synthe[employer] I 04.005.52 8 / 0 / 0 Synthes 04.005.534 5mm 4.3mm 44mm Lock Self Tap Blunt Tip 2 Lead Tibial T25 Full - S0 - [id number] Implanted:Qty: 1 on 03/22/2021 by Rusty Larios MD at [facility] Screw Left: Femur Synthes I 04.005.53 4 / 0 / 0 Synthes 04.005.532 5mm 4.3mm 42mm Lock Self Tap Blunt Tip 2 Lead Tibial T25 Full - S0 - [id number] Implanted:Qty: 1 on 03/22/2021 by Rusty Larios MD at [facility] Screw Left: Femur Synthes I 04.005.53 2 / 0 / 0 Synthes 04.005.536 5mm 4.3mm 46mm Lock Self Tap Blunt Tip 2 Lead Tibial T25 Full - S0 - [id number] Implanted:Qty: 1 on 03/22/2021 by Rusty Larios MD at [facility] Screw Left: Femur Synthes I 04.005.53 6 / 0 / 0 [employer] 1897-6080s 6.5mm 80mm Lag Cannulated Femur Screw Bone Titanium Sterile - [id number] Implanted:Qty: 1 on 03/24/2021 by Franny Cardozo MD at [facility] Screw Right: Femur [employer] [id number] 10/07/2025 5115-2213 S / / [id number] [employer] 1897-6080s 6.5mm 80mm Lag Cannulated Femur Screw Bone Titanium Sterile - [id number] Implanted:Qty: 1 on 03/24/2021 by Franny Cardozo MD at [facility] Screw Right: Femur [employer] [id number] 08/06/2022 7371-3229 S / / [id number] [employer] 2360-5055s Screw Bone 5mm 55mm T2 Alpha Lock Strl - [id number] Implanted:Qty: 1 on 03/24/2021 by Luis Medina MD at [facility] Screw Right: Femur [employer] [id number] 03/09/2030 7462-5072 S / / [id number] [employer] 2360-5045s Screw Bone 5mm 45mm T2 Alpha Lock Strl - [id number] Implanted:Qty: 1 on 03/24/2021 by Luis Medina MD at [facility] Screw Right: Femur [employer] [id number] 04/06/2030 1805-1466 S / / [id number] Synthes 04.033.067s Nail 10mm 360mm Fem Greater Trochanter Left Im 140d 8 Hole - [id number] Implanted:Qty: 1 on 03/22/2021 by Mauro Barraza MD at [facility] Left: Femur Synthe[employer] I 08/07/2027 04.033.06 7S / / [id number] Explanted Type Area Therapy Manager Device Identifier Shelf Expiration Date Model / Serial / Lot [employer] 1806-0050s Dom T2 3mm 285mm Retrograde Supracondylar Wire Fixation - [id number] Explanted:Qty: 1 on 03/24/2021 by Franny Cardozo MD at [facility] Wire Right: Femur [employer] [id number] 12/07/2025 1942-6538 S / / [id number] [employer] 2351-3240s K-Wire Drill-Tip Recon - [id number] Explanted:Qty: 1 on 03/24/2021 by Franny Cardozo MD at [facility] Wire Right: Femur [employer] [id number] 01/06/2031 3010-5148 S / / [id number] Procedures Procedure Name Priority Date/Time Associated Diagnosis [...] Bilateral Mammography Impressions 11/21/2023 2:26 PM CDT BI-RADS ATLAS category (overall): 2 - Benign There is no mammographic evidence of malignancy. A 1 year screening mammogram is recommended. The patient has been or will be contacted. We recommend annual screening mammography for women at average risk of breast cancer beginning at age 40, based on guidelines of the [place] [employer] (ACR Practice Parameter for the Performance of Screening and Diagnostic Mammography) and [place] [employer]. For women [...] in the CC and MLO projections. CLINICAL: Encounter for screening mammogram for breast cancer. Medical history includes breast cancer. History of breast cancer in Father's Sister. COMPARISONS: [...] stable postlumpectomy changes in the left breast. There are vascular calcifications bilaterally. No suspicious masses, suspicious calcifications, or other suspicious findings are seen within either breast. There has been no suspicious change. Amparo Villanueva NP IMG MAMMO PROCEDURES Final Result from Last 3 Months or Most Recently Relevant to Health Maintenance Insurance [facility] MEDICARE [facility] MEDICARE ADVANTAGE [facility] MEDICARE [facility] MEDICARE Address: [facility] [id number] [place] [address] [facility] MEDICARE Advance Directives For more information, please contact: [phone] * Full Code (Latest Code Status on File) Date Activated Date Inactivated Comments 03/22/2021 1:16 AM 03/31/2021 5:08 PM Care Teams Firer Locomotive Relationship Specialty Start Date End Date Darleen Alan MD PCP - General 11/29/16 Aft, Marion Swift MD PhD [address] [place] [address] Surgeon Surgical Oncology 03/31/21 Bisi Lopez NP [address] [place] [address] Nurse Practitioner Medical Oncology 11/19/22
--- OUTSIDE RECORDS SUMMARY | 2024-06-21 10:41 | XMS_ITS | Referral Summary ---
Author Organization [facility] Address [address] [place] [address] Care Team Providers Care Director Of Tax Services Name Role Phone Darleen Alan MD Primary Care Provider + Aft, Marion Swift MD PhD Unavailable [phone] JessicaBisi INDUSTRIAL RENDERER Unavailable [phone] Allergies Active Allergy Reactions Criticality Noted Date [...] multivitamin tabletIndication s:Vitamin Deficiency Prevention Active vitamins A,C,B-wifw-wvytc r (OCUVITE) 7,160 unit- 113 mg-100 unit [...] (03/21/2021): Added automatically from request for surgery [id number] Closed displaced transverse fracture of shaft of left femur, initial encounter 03/21/2021 Incomplete atypical fracture of right femur 03/10 Overview (03/23/2021): Added automatically from request for surgery [id number] Malignant neoplasm of overla pping sites of [...] on file Legal Sex Female 3:26 AM MEDICAL ADMINISTRATOR Gender Identity Female 04/18/2021 6:39 PM MEDICAL ADMINISTRATOR Sexual Orientation Straight 04/18/2021 6: 39 PM MEDICAL ADMINISTRATOR Last Filed Vital Signs Vital Sign Reading Time Taken Comments Blood Pressure 121/67 01/13/2023 3:47 PM MEDICAL ADMINISTRATOR Pulse 78 01/13/2023 3:47 PM MEDICAL ADMINISTRATOR Temperature 36.3 C (97.4 F) 01/13/2023 3:47 PM MEDICAL ADMINISTRATOR Respiratory Rate 18 01/13/2023 3:47 PM MEDICAL ADMINISTRATOR Oxygen Saturation 97% 01/13/2023 3:47 PM MEDICAL ADMINISTRATOR Inhaled Oxygen Concentration - - Weight 82.4 kg (181 lb 9.6 oz) 01/13/2023 3:47 P M MEDICAL ADMINISTRATOR Height 162.6 cm (5' 4 ) 01/13/2023 3:47 PM MEDICAL ADMINISTRATOR Body Mass Index 31.17 01/13/2023 3:47 PM MEDICAL ADMINISTRATOR Plan of Treatment Not on file Medical Devices Implanted Type Area Drinking Water Technician Device Identifier Shelf Expiration Date Model / Serial / Lot [employer] 2333-1038s Nail 10mm 380mm Fem Greater Trochanter Right T2 Alpha Im - [id number] Implanted:Qty: 1 on 03/24/2021 by Franny Cardozo MD at [facility] Nail Right: Femur [employer] [id number] 10/07/2022 0926-6248 S / / [id number] Synthes 04.003.028 6.5mm 90mm Self Tap Blunt Tip Stardrive Femoral Lateral T25 Screw - S0 - [id number] Implanted:Qty: 1 on 03/22/2021 by Rusty Larios MD at [facility] Screw Left: Femur [employer]ynthe[employer] I 04.003.02 8 / 0 / 0 Synthes 04.005.528 5mm 4.3mm 38mm Lock Self Tap Blunt Tip 2 Lead Tibial T25 Full - S0 - [id number] Implanted:Qty: 1 on 03/22/2021 by Rusty Larios MD at [facility] Screw Left: Femur [employer] I 04.005.52 8 / 0 / 0 Synthes 04.005.534 5mm 4.3mm 44mm Lock Self Tap Blunt Tip 2 Lead Tibial T25 Full - S0 - [id number] Implanted:Qty: 1 on 03/22/2021 by Rusty Larios MD at [facility] Screw Left: Femur Synthe[employer] I 04.005.53 4 / 0 / 0 Synthes 04.005.532 5mm 4.3mm 42mm Lock Self Tap Blunt Tip 2 Lead Tibial T25 Full - S0 - [id number] Implanted:Qty: 1 on 03/22/2021 by Rusty Larios MD at [facility] Screw Left: Femur Synthes I 04.005.53 2 / 0 / 0 Synthes 04.005.536 5mm 4.3mm 46mm Lock Self Tap Blunt Tip 2 Lead Tibial T25 Full - S0 - [id number] Implanted:Qty: 1 on 03/22/2021 by Rusty Larios MD at [facility] Screw Left: Femur Synthes I 04.005.53 6 / 0 / 0 [employer] 1897-6080s 6.5mm 80mm Lag Cannulated Femur Screw Bone Titanium Sterile - [id number] Implanted:Qty: 1 on 03/24/2021 by Franny Cardozo MD at [facility] Screw Right: Femur [employer] [id number] 10/07/2025 0524-2430 S / / [id number] [employer] 1897-6080s 6.5mm 80mm Lag Cannulated Femur Screw Bone Titanium Sterile - [id number] Implanted:Qty: 1 on 03/24/2021 by Franny Cardozo MD at [facility] Screw Right: Femur [employer] [id number] 08/06/2022 4219-6832 S / / [id number] [employer] 2360-5055s Screw Bone 5mm 55mm T2 Alpha Lock Strl - [id number] Implanted:Qty: 1 on 03/24/2021 by Luis Medina MD at [facility] Screw Right: Femur [employer] [id number] 03/09/2030 3252-5252 S / / [id number] [employer] 2360-5045s Screw Bone 5mm 45mm T2 Alpha Lock Strl - [id number] Implanted:Qty: 1 on 03/24/2021 by Luis Medina MD at [facility] Screw Right: Femur [employer] [id number] 04/06/2030 1201-9049 S / / [id number] Synthes 04.033.067s Nail 10mm 360mm Fem Greater Trochanter Left Im 140d 8 Hole - [id number] Implanted:Qty: 1 on 03/22/2021 by Mauro Barraza MD at [facility] Left: Femur [employer]ynthe[employer] I 08/07/2027 04.033.06 7S / / [id number] Explanted Type Area Drinking Water Technician Device Identifier Shelf Expiration Date Model / Serial / Lot [employer] 1806-0050s Dom T2 3mm 285mm Retrograde Supracondylar Wire Fixation - [id number] Explanted:Qty: 1 on 03/24/2021 by Franny Cardozo MD at [facility] Wire Right: Femur [employer] [id number] 12/07/2025 3569-2788 S / / [id number] [employer] 23513240s K-Wire Drill-Tip Recon - [id number] Explanted:Qty: 1 on 03/24/2021 by Franny Cardozo MD at [facility] Wire Right: Femur [employer] [id number] 01/06/2031 2381-2259 S / / [id number] Procedures Procedure Name Priority Date/Time Associated Diagnosis [...] age 40, based on guidelines of the [place] [employer] (ACR Practice Parameter for the Performance of Screening and Diagnostic Mammography) and [place] [employer]. For women [...] Most Recently Relevant to Health Maintenance Insurance [facility] MEDICARE [facility] MEDICARE ADVANTAGE [facility] MEDICARE [facility] MEDICARE Address: [facility] [id number] [place] [address] FOR[facility]LY [facility] MEDICARE Advance Directives For more information, please contact: [phone] * Full Code (Latest Code Status on File) Date Activated Date Inactivated Comments 03/22/2021 1:16 AM 03/31/2021 5:08 PM Care Teams Director Of Tax Services Relationship Specialty Start Date End Date Darleen Alan MD PCP - General 11/29/16 Aft, Marion Swift MD PhD [address] [place] [address] Surgeon Surgical Oncology 03/31/21 Bisi Lopez NP [address] [place] [address] Nurse Practitioner Medical Oncology 11/19/22
--- OUTSIDE RECORDS SUMMARY | 2024-06-21 10:41 | XMS_ITS | Clinical Summary ---
Author Organization [facility] Address [address] [place] [address] Care Team Providers Care Sole Edge Inker Machine Name Role Phone Unavailable Primary Care Provider Unavailabl e Source Comments [facility],non-owned Affiliates and Associated Physician Practices is amultiple site organization consisting of ambulatory clinics and hospital sitesin [place], [place], [place] and [place]. This disclosure is being madepursuant to the Care Everywhere program and may not contain all information available regarding this patient. Last updated 17.[facility] Encounters Date Type Department Care Team Description 05/28/2024 Lab Requisition [facility] [address] [place] [address] Luisa Sanchez PA-C Neoplasm of uncertain behavior of skin from Last 3 Months Social History Tobacco Use Types Packs/Day Years Used Date Smoking Tobacco: Never Assessed Comments Unknown Sex and Gender Information Value Date Recorded Sex Assigned at Not on file Legal Sex Female 3:50 PM CDT Gender Identity Not on file Sexual Orientation Not on file Plan of Treatment Health Maintenance Due Date Last Done Comments BONE DENSITY TESTING 1945 HEPATITIS C SCREENING 05/22/1965 DTAP/TDAP/TD VACCINES (1 - Tdap) 05/26/1966 PNEUMOCOCCAL VACCINE 50+ (1 of 1 - PCV) 05/26/1997 ZOSTER VACCINE (1 of 2) 05/26/1997 Respiratory Syncytial Virus (RSV) Vaccine Pt: or over 60 yrs (1 - 1-dose 75+ series) 05/26/2022 COVID-19 VACCINE ( - 2023-2 5 season) 2023 DEPRESSION SCREENING 02/08/2024 INFLUENZA VACCINE (Season Ended) 2024 HEPATITIS B VACCINE Aged Out No longe r eligible based on patient's age to complete this topic HIB VACCINE Aged Out No longer eligi ble based on patient's age to complete this topic HPV VACCINE Aged Out No longer eligi ble based on patient's age to complete this topic MENINGOCOCCAL (Group B) VACC INE SHARED DECISION-MAKING Aged Out No longer eligibl e based on patient's age to complete this topic MENINGOCOCCAL GROUPS A/C/Y/W VACCINE Aged Out No longer eligible b ased on patient's age to complete this topic
--- OUTSIDE RECORDS SUMMARY | 2024-06-21 10:41 | XMS_ITS | Encounter Summary ---
Author Organization [facility] Address [address] [place] [address] Care Team Providers Care Maintenance Mechanic Telephone Name Role Phone Unavailable Primary Care Provider Unavailabl e Encounter Details Date Type Department Care Team (Late st Contact Info) Description 05/28/2024 Lab Requisition [facility] - [facility] Lab [address] [facility] [place] [address] Luisa Sanchez PA-C [address] [place] [address] Neoplasm of uncertain behavior of skin Social History Tobacco Use Types Packs/Day Years Used Date Smoking Tobacco: Never Assessed Comments Unknown Sex and Gender Information Value Date Recorded Sex Assigned at Not on file Legal Sex Female 3:50 PM CDT Gender Identity Not on file Sexual Orientation Not on file documented as of this encounter Plan of Treatment Scheduled Orders Name Type Priority Associated Diagnoses Orde r Schedule DERMATOPATHOLOGY Pathology Cytology Routine Neoplasm of uncertain behavior of skin Ordered: 05/28/2024 documented as of this encounter Visit Diagnoses Diagnosis Neoplasm of uncertain behavior of skin documented in this encounter
--- OUTSIDE RECORDS SUMMARY | 2024-06-21 10:41 | XMS_ITS ---
Author Organization [facility] Address [address] [place] [address] Care Team Providers Care Heater Helper Name Role Phone Darleen Alan MD Primary Care Provider + Aft, Marion Swift MD PhD Unavailable [phone] Bisi Lopez CONTACT OFFICER Unavailable [phone] Active Problems Problem Noted Date Diagnosed Date Breast cancer, female 09/10/2021 Acute blood loss anemia 03/24/2021 Closed displaced transverse fracture of shaft of left femur 03/21/2021 Overview (03/21/2021): Added automatically from request for surgery [id number] Closed displaced transverse fracture of shaft of left femur, initial encounter 03/21/2021 Incomplete atypical fracture of right femur 03/10 Overview (03/23/2021): Added automatically from request for surgery [id number] Malignant neoplasm of overla pping 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, estrogen receptor positive 10/05/2017 History of malignant neoplasm of breast 11/09/19 15 Malignant neoplasm of tongue 06/20/2009 Current Treatment and Therapy Plans No current plan information found. Past Treatment and Therapy Plans No past plan information found. Lifetime Dose Tracking * Chemical Lifetime Dose Automatic Entry Manual Entr y Fluoro Time 8.827 minutes 8.827 minutes 0 minutes Air kerma at the reference point (Ka,r) 121.37 mGy 1 21.37 mGy 0 mGy
--- OUTSIDE RECORDS SUMMARY | 2024-06-21 10:41 | XMS_ITS | Continuity of Care Document ---
Author Organization [facility] Address [address] [place] [address] Phone Care Team Providers Care Three Knife Trimmer Name Role Phone Fermín RAMIREZ MD, Gilberto Unavailable Unavailable Procedures Procedure Date OFFICE/OUTPATIENT VISIT, [facility] OPHTHALMIC BIOMETRY SPECIAL EYE EXAM, INITIAL SPECIAL EYE EXAM, INITIAL Advance Directives Directive Yes / No Effective Date File Name No Information Encounters Encounter Description Practice Location Reason(s) For Visit Diagnoses Date Provider Providers Copied on Encounter OFFICE/OUTPA TIENT VISIT, [facility], [address], [place], [place], [address], [place] tel:[phone] [facility] No Information 4 Fermín Macias. [address], [place], [place], [address] , [place]. tel:[phone] Referring Provider: Gilberto Kovacs MD P, [address], [place], [address] . tel:[phone] Family History Family Member Type Diagnosis Age At Onset No Information Payers Payer name Insurance type Covered republican ID Authoriza tion(s) No Information Social History Type Description Quantity Date Captured Comments Sex Female Smoking Status No Information Chief Complaint And Reason For Visit No Information Reason For Referral Reason For Referral No Information History Of Present Illness Encounter Date Complaint History Of Prese nt Illness No Information Functional Status Date Functional Assessmen t No Information Instructions Date Instruction Additional Infor mation No Information Assessments Type Assessment Date No Information Patient Care Teams Name Effective Dates (start - stop) Status Members No Information
== END 2024-06-21 10:30 | disposition home or self-care (01) ==
PROVIDERS: PCP Family Medicine; Visit Provider Student in an Organized Health Care Education/Training Program
DX: R91.1 Solitary pulmonary nodule (principal)
CPT/HCPCS: 71250